=== PATIENT | female | born 1940 | race Caucasian/White ===

== ENCOUNTER 2019-07-28 10:45 | Emergency (ER) | payer MEDICARE, MEDICAID ==
[~2019-07-28] VITALS: Ht 152.4 cm; Wt 66.0 kg
[2019-07-28 10:52] VITALS: BP 134/80
[2019-07-28] MEDS ORDERED: SIMV-259 PO (10:57)
[2019-07-28] MEDS ORDERED: LEVO88TA4 PO (10:57)
== END 2019-07-28 12:19 | disposition home or self-care (01) ==
LOC: EMS 10:50
DX: M20.021 Boutonniere deformity of right finger(s) (principal); M25.511 Pain in right shoulder; F17.210 Nicotine dependence, cigarettes, uncomplicated
CPT/HCPCS: 99406

== ENCOUNTER 2021-05-09 11:53 | Emergency (ER) | payer MEDICARE, MEDICAID ==
[~2021-05-09] VITALS: Ht 154.9 cm; Wt 75.0 kg
[~2021-05-09 11:53] MED LIST: LEVO88TA4 PO; SIMV-259 PO
[2021-05-09] MEDS ORDERED: SODIUM CHLORIDE 0.9% 250 ML IRRIG SOLUTION BOTTLE IRRIG ONE (12:15)
[2021-05-09] MEDS ORDERED: LIDOCAINE 1% 20 ML VIAL ID ONE (12:15)
[2021-05-09] MEDS ORDERED: HYDROCODONE/ACETAMINOPHEN 5-325 MG TABLET PO ONE (12:15)
[2021-05-09] MEDS ORDERED: PERTUSS(ACELL),DIPH,TET VAC/PF 0.5 ML SYRINGE IM. ONE (12:15)
[2021-05-09 14:32] VITALS: BP 156/75
[2021-05-09] MEDS ORDERED: CEPH500C3 PO (15:09)
== END 2021-05-09 15:24 | disposition home or self-care (01) ==
LOC: EMS 11:57
DX: S01.81XA Laceration without foreign body of other part of head, initial encounter (principal); E78.00 Pure hypercholesterolemia, unspecified; E03.9 Hypothyroidism, unspecified; F17.210 Nicotine dependence, cigarettes, uncomplicated; Z88.6 Allergy status to analgesic agent; Z79.899 Other long term (current) drug therapy; W01.198A Fall on same level from slipping, tripping and stumbling with subsequent striking against other object, initial encounter; Y93.89 Activity, other specified; Y92.89 Other specified places as the place of occurrence of the external cause; Y99.8 Other external cause status
CPT/HCPCS: 12055; 70450; 72125; 90471; 90715; 96372; 99284; J0690; J3490

== ENCOUNTER 2021-05-20 13:28 | Emergency (ER) | payer MEDICARE, MEDICAID ==
[~2021-05-20] VITALS: Ht 149.9 cm; Wt 65.9 kg
[~2021-05-20 13:28] MED LIST changes: +CEPH500C3 PO
[2021-05-20 13:36] VITALS: BP 137/74
== END 2021-05-20 14:06 | disposition home or self-care (01) ==
LOC: EMS 13:31
DX: S01.81XD Laceration without foreign body of other part of head, subsequent encounter (principal); E78.00 Pure hypercholesterolemia, unspecified; F17.210 Nicotine dependence, cigarettes, uncomplicated; Z88.6 Allergy status to analgesic agent; X58.XXXD Exposure to other specified factors, subsequent encounter
CPT/HCPCS: 99281; Z7502